=== PATIENT | female | born 1990 | race Caucasian/White ===

== ENCOUNTER 2024-01-29 08:45 | Outpatient (CLI) | payer BC | END 2024-01-29 08:46 | disposition home or self-care (01) | LOC: PET 08:45 | PROVIDERS: ATTEND Emergency Medicine | DX: R22.2 Localized swelling, mass and lump, trunk (principal); S22.31XD Fracture of one rib, right side, subsequent encounter for fracture with routine healing | CPT/HCPCS: 78815; A9552 ==